=== PATIENT | female | born 1960 | race Hispanic/Latino ===

== ENCOUNTER → 2017-12-18 | Outpatient (CLI) | payer BC ==
[~2017-12-18] MED LIST: ASA81 MG PO; AZITHROMYCIN250 MG PO; BACITRACIN 50,000 UNIT VIAL ONE; BIOTIN2500 MCG PO; BUPIVACAINE HCL 0.5% 10ML MPF VIAL INJ ONE; CEFTRIAXONE; CENTRUM COMPLE1 EACH PO; EVISTA60 MG PO; FOSAMAX70 MG PO; K-DUR20 ME1; LASIX20 MG PO; OYST-CAL-500500 MG PO; SIMVASTATIN10 MG PO; STEROID SHOT; TRIAMTERENE-HC1 EAC2 PO; TRIAMTERENE-HCTZ1 EA PO; VITAMIN D3400 UNIT PO; Z.0.LASIX20 MG; Z.0.PRILOSEC40 MG; Z.0.TRICOR145 MG PO; Z.0.ZOCOR40 MG PO; Z.2.METFORMIN HCL500; [UNRECOGNIZED DRUG - OTHER] PO
--- NOTE | 2017-12-22 18:12 | Diagnostic Imaging Report ---
#[id number] - MGSCRBIL #BILATERAL DIGITAL SCREENING MAMMOGRAM WITH CAD: 12/18/2017 CLINICAL: Routine screening. Comparison is made to exams dated: 06/29/2015 mammogram and 06/05/2015 mammogram - [facility]. Current study contains 4 films. The tissue of both breasts is heterogeneously dense. This may lower the sensitivity of mammography. Current study was also evaluated with a Computer Aided Detection (CAD) system. There are benign calcifications in both breasts. There also are benign nodules in both breasts that are stable. No significant masses, calcifications, or other findings are seen in either breast. There has been no significant interval change. IMPRESSION: BENIGN There is no mammographic evidence of malignancy. A 1 year screening mammogram is recommended. The patient will be notified by letter of the results. Hernando Fields Jr., D.O. cw/:12/22/2017 07:44:25 Care Tech: Mihaela RODGERS(Gee)(Desmond), [facility] letter sent: Compared to Prior B9 Mammogram BI-RADS: 2 Benign
== END | disposition home or self-care (01) ==
LOC: MAMMO 14:11
PROVIDERS: ATTEND Internal Medicine
DX: Z12.31 Encounter for screening mammogram for malignant neoplasm of breast (principal)
CPT/HCPCS: 77067

== ENCOUNTER → 2017-12-19 | Day surgery (SDC) | payer BC ==
[~2017-12-19] MED LIST changes: -BACITRACIN 50,000 UNIT VIAL ONE; -BUPIVACAINE HCL 0.5% 10ML MPF VIAL INJ ONE; +CEFAZOLIN SOD 1 GM VIAL ONE; +DEXAMETHASONE SOD PHOS INJ 4 MG/ML VIAL ONE; +FAMOTIDINE 20 MG/2 ML VIAL IV ONE; +FENTANYL CITRATE/PF 100MCG/2 ML INJ ONE; +KETOROLAC TROMETHAMINE 30 MG/ML VIAL ONE; +LIDOCAINE HCL 2% LOCAL INJ 5 ML SDV VIAL INJ ONE; +METOCLOPRAMIDE HCL 10 MG/2ML VIAL ONE; +MORPHINE SULFATE INJ 10 MG/ML ONE; +ONDANSETRON HCL INJ 2 MG/ML VIAL ONE; +PROPOFOL IV EMULSION 10 MG/ML 20 ML VIAL ONE; +SCOPOLAMINE 1.5 MG PATCH ONE; +SEVOFLURANE INHAL SOLN 250 ML PEN BTL ONE
[2017-12-19 08:43] LABS: BASOPHILS # (AUTO) 0.1 (0.0-0.1); BASOPHILS % 0.9 % (0.0-1.0); EOSINOPHILS # (AUTO) 0.2 (0.0-0.4); EOSINOPHILS % 3.4 % (0.0-6.0); HEMATOCRIT 40.6 % (34.2-44.1); HEMOGLOBIN 14.1 g/dL (12.0-16.0); LYMPHOCYTES # (AUTO) 2.6 (1.0-3.2); LYMPHOCYTES % 45.2 % (18.0-39.1); MEAN CORPUSCULAR HEMOGLOBIN 31.2 pg (28-32); MEAN CORPUSCULAR HGB CONC 34.7 g/dL (31-35); MEAN CORPUSCULAR VOLUME 89.8 fL (81-99); MONOCYTES # (AUTO) 0.4 (0.2-0.8); MONOCYTES % 7.4 % (4.4-11.3); NEUTROPHILS # (AUTO) 2.4 (2.1-6.9); NEUTROPHILS % 42.9 % (38.7-80.0); PLATELET COUNT 219 x10e3/uL (140-360); RED BLOOD COUNT 4.52 x10e6/uL (3.6-5.1)
[2017-12-19 08:59] LABS: ANION GAP 14.6 mmol/L (8-16); BLOOD UREA NITROGEN 18 mg/dL (7-26); BUN/CREATININE RATIO 22 (6-25); CALCIUM 9.8 mg/dL (8.4-10.2); CARBON DIOXIDE 25 mmol/L (22-29); CHLORIDE 105 mmol/L (98-107); CREATININE, SERUM 0.83 mg/dL (0.57-1.11); EST GLOMERULAR FILTRATION RATE > 60 ML/MIN (60-); GLUCOSE 119 mg/dL (74-118); POTASSIUM 3.6 mmol/L (3.5-5.1); SODIUM 141 mmol/L (136-145)
--- NOTE | 2017-12-20 08:28 | Operative Report ---
DATE OF PROCEDURE: December 19, 2017 PREOPERATIVE DIAGNOSIS: Recurrent ganglion cyst, left wrist. POSTOPERATIVE DIAGNOSIS: Recurrent ganglion cyst, left wrist. PROCEDURE: Excision of recurrent ganglion cyst, left wrist. ANESTHESIA: General. HISTORY: The patient is a 57-year-old female who several years ago underwent resection of a left wrist volar ganglion cyst. She has noted a symptomatic recurrence. Risk, benefits and alternatives of treatment were discussed with the patient. She is prepared to undergo the procedures outlined. DETAILS OF PROCEDURE: Patient was marked preoperatively in the holding area. She was brought to the operating theater, and after the induction of adequate general anesthesia, she was prepped and draped in a supine position. A time out was performed. The left upper extremity is marked, and then exsanguinated and a tourniquet inflated to a pressure of 250 mmHg. An incision was made through the skin and subcutaneous tissues. Small venous tributaries were controlled with bipolar cautery. The FCR tendon was identified on the ulnar side of the wound and the radial artery was identified. It was a large area of scar tissue with a recurrent cyst noted in the interval between the 2 structures. The arteries carefully dissected off of the scarred area. The cyst was identified and traced down to the scaphotrapezial joint where the cyst and its communicating stalk were then removed. The rent in the joint capsule was fulgurated with the bipolar cautery, and then irrigated with bacteriostatic saline and closed with a 5-0 nylon in an interrupted horizontal mattress fashion. A Marcaine field block was performed at the operative site. Tourniquet was deflated. All the fingers pinked up nicely. A sterile bulking conforming bandage was applied. Patient tolerated the procedure well, and was brought to the recovery room in satisfactory condition, and discharged with a postoperative instruction sheet, as well as a followup appointment. Job#: [id number] HERNAN
--- NOTE | 2017-12-20 08:40 | Operative Report ---
DATE OF PROCEDURE: December 19, 2017 PREOPERATIVE DIAGNOSIS: Bilateral involutional ptosis of breasts. POSTOPERATIVE DIAGNOSIS: Bilateral involutional ptosis of breasts. PROCEDURES 1. Bilateral augmentation mammoplasty. 2. Mastopexy. ANESTHESIA: General. HISTORY: Patient is a 57-year-old female who complains of involution of breasts along with some ptosis, and wishes to have correction of this. The risks, benefits and alternatives of treatment were discussed with the patient. She is prepared to undergo the procedures outlined. She has signed the [place] [employer] consent forms for said procedures. PROCEDURE: Patient was marked preoperatively in the holding area. She was brought to the operating theater, and after the induction of adequate general anesthesia, she was prepped and draped in a supine position. A time out was performed. The procedure was begun by marking out inframammary incisions below both breasts of approximately 6.5 cm in length. The incisions were then made through the skin and subcutaneous tissues. Venous tributaries are controlled with the cautery. Using the cautery, the dissection was deepened through the subcutaneous and breast tissue until the prepectoral fascia was identified. At this point, the lower hemispheric portion of each breast was then undermined up to the level of the nipple areolar complex in a dual-plane technique. After the completion of the subglandular dissection, the pectoralis major muscle is identified at its insertion down at the inframammary fold. Leaving a cuff of tissue 2-3 cm to maintain the inframammary fold, the muscle was transected over a rib using the electrocautery. The muscle was transected from medial to lateral. Then the subpectoral space was then entered. Using the markings, the subpectoral space was enlarged to the size needed to accommodate the implant. At this point, hemostasis is checked, and the wounds made hemostatic. A 450 mL smooth round gel filled sizers were then placed within each breast pocket. It was noted that several adjustments to each pocket is necessary to achieve a nice contour over the sizer. The sizers were then removed and the pockets were then enlarged and revised as needed by transecting some more pectoralis major muscle medially, and then extending the pockets laterally to achieve a nice curvature. At this point, the pockets are checked for hemostasis once again, and the sizers are replaced. There is noted to be a good contour over the sizer with no tension of the pocket over the implant sizer. At this point, the sizers were then removed. The pockets are both irrigated with antibiotic containing solution and hemostasis is checked once again and made absolute. The pockets were then irrigated with Betadine solution and two 450 mL smooth round gel filled implants were prepared by metal template maker specification. The lot number and serial number are located within the patient's chart. The implants were placed within the patient's pockets, and then the patient was sat up and assessed. It was noted that the left nipple needs to have 2 cm of correction. The right nipple areola complex needs to have 1 cm of correction. The patient was made supine. The inframammary wounds were closed in layers as follows: 3-0 Monocryl was used in an interrupted simple fashion to approximate the subcutaneous and breast tissue, 4-0 Monocryl was used in an interrupted buried fashion to approximate the deep dermis and finally a 5-0 Monocryl running subcuticular stitch was used. At this point, the mastopexy markings that were made with the patient in the upright position are incised through the skin and subcutaneous tissue sharply for the upper hemispheric portion of each nipple areolar complex. The skin paddles were then removed. The wounds were made hemostatic using electrocautery. The wounds were then closed with 3-0 Monocryl in an interrupted buried fashion to approximate the deep dermis and a 5-0 running subcuticular stitch was used to close the epidermis. Steri-Strips were applied to all the incisions. The estimated blood loss for this portion of the procedure was approximately 50-75 mL. She tolerated the procedure well. Sterile bulking forming bandages were applied. Patient was placed in a gently compressing postoperative bra, and then brought to the recovery room in satisfactory condition. She was discharged with a postoperative instruction sheet, as well as a followup appointment. Job#: [id number] HERNAN
== END | disposition home or self-care (01) ==
LOC: OR 08:01
PROVIDERS: ATTEND Plastic Surgery
DX: N64.81 Ptosis of breast (principal); M67.432 Ganglion, left wrist; I10 Essential (primary) hypertension; K21.9 Gastro-esophageal reflux disease without esophagitis; E78.5 Hyperlipidemia, unspecified; N20.0 Calculus of kidney; Z01.810 Encounter for preprocedural cardiovascular examination; Z79.82 Long term (current) use of aspirin
CPT/HCPCS: 19316; 19325; 25112; L8600; 36415; 80048; 85025; 88304; 93005; J0690; J1100; J1885; J2001; J2270; J2405; J2765

== ENCOUNTER → 2018-02-23 | Outpatient (CLI) | payer BC ==
[~2018-02-23] MED LIST changes: -CEFAZOLIN SOD 1 GM VIAL ONE; -DEXAMETHASONE SOD PHOS INJ 4 MG/ML VIAL ONE; -FAMOTIDINE 20 MG/2 ML VIAL IV ONE; -FENTANYL CITRATE/PF 100MCG/2 ML INJ ONE; -KETOROLAC TROMETHAMINE 30 MG/ML VIAL ONE; -LIDOCAINE HCL 2% LOCAL INJ 5 ML SDV VIAL INJ ONE; -METOCLOPRAMIDE HCL 10 MG/2ML VIAL ONE; -MORPHINE SULFATE INJ 10 MG/ML ONE; -ONDANSETRON HCL INJ 2 MG/ML VIAL ONE; -PROPOFOL IV EMULSION 10 MG/ML 20 ML VIAL ONE; -SCOPOLAMINE 1.5 MG PATCH ONE; -SEVOFLURANE INHAL SOLN 250 ML PEN BTL ONE
[2018-02-23 09:02] LABS: BILIRUBIN,URINE NEGATIVE (NEGATIVE); CLARITY,URINE SL CLOUDY (CLEAR); COLOR,URINE YELLOW (YELLOW); KETONES,URINE NEGATIVE (NEGATIVE); LEUKOCYTE ESTERASE ,URINE NEGATIVE (NEGATIVE); NITRITE,URINE NEGATIVE (NEGATIVE); PROTEIN,URINE DIPSTICK NEGATIVE (NEGATIVE); URINE UROBILINOGEN 0.2 mg/dL (0.2 - 1)
[2018-02-23 09:15] LABS: BACTERIA,URINE FEW /HPF; EPITHELIAL CELLS,URINE FEW /LPF; RBC,URINE 21-50 /HPF (0-5)
== END ==
LOC: LAB 08:16
PROVIDERS: ATTEND Urology
DX: N39.0 Urinary tract infection, site not specified (principal)
CPT/HCPCS: 81001; 87086

== ENCOUNTER → 2018-04-04 | Day surgery (SDC) | payer BC ==
[~2018-04-04] MED LIST changes: +BELLADONNA/OPIUM 30 MG SUPP RC ONE; +CEFTRIAXONE SOD 1 GM VIAL ONE; +CITRIC ACID/SODIUM CITRATE 30 ML UDC ONE; +DEXAMETHASONE SOD PHOS INJ 4 MG/ML VIAL ONE; +FAMOTIDINE 20 MG/2 ML VIAL IV ONE; +IOPAMIDOL 610MG/1ML 300 MG/ML VIAL IV ONE; +KETOROLAC TROMETHAMINE 30 MG/ML VIAL ONE; +LIDOCAINE HCL 2% LOCAL INJ 5 ML SDV VIAL INJ ONE; +METOCLOPRAMIDE HCL 10 MG/2ML VIAL ONE; +ONDANSETRON HCL INJ 2 MG/ML VIAL ONE; +PROPOFOL IV EMULSION 10 MG/ML 20 ML VIAL ONE; +SCOPOLAMINE 1.5 MG PATCH ONE; +SEVOFLURANE INHAL SOLN 250 ML PEN BTL ONE
[2018-04-04 10:52] LABS: BASOPHILS # (AUTO) 0.1 (0.0-0.1); BASOPHILS % 0.9 % (0.0-1.0); EOSINOPHILS # (AUTO) 0.2 (0.0-0.4); EOSINOPHILS % 3.3 % (0.0-6.0); HEMATOCRIT 39.8 % (34.2-44.1); HEMOGLOBIN 13.7 g/dL (12.0-16.0); LYMPHOCYTES # (AUTO) 2.3 (1.0-3.2); LYMPHOCYTES % 42.2 % (18.0-39.1); MEAN CORPUSCULAR HEMOGLOBIN 30.6 pg (28-32); MEAN CORPUSCULAR HGB CONC 34.4 g/dL (31-35); MONOCYTES # (AUTO) 0.4 (0.2-0.8); MONOCYTES % 6.7 % (4.4-11.3); NEUTROPHILS # (AUTO) 2.5 (2.1-6.9); NEUTROPHILS % 46.5 % (38.7-80.0); PLATELET COUNT 215 x10e3/uL (140-360); RED BLOOD COUNT 4.47 x10e6/uL (3.6-5.1); RED CELL DISTRIBUTION WIDTH 12.3 % (11.7-14.4)
[2018-04-04 11:14] LABS: ALANINE AMINOTRANSFERASE 29 IU/L (0-55); ALBUMIN 3.9 g/dL (3.5-5.0); ALBUMIN/GLOBULIN RATIO 1.1 (0.8-2.0); ALKALINE PHOSPHATASE 57 IU/L (40-150); ANION GAP 12.9 mmol/L (8-16); BLOOD UREA NITROGEN 12 mg/dL (7-26); BUN/CREATININE RATIO 18 (6-25); CALCIUM 9.6 mg/dL (8.4-10.2); CARBON DIOXIDE 24 mmol/L (22-29); CHLORIDE 107 mmol/L (98-107); CHOL/HDL RATIO 6.9 (3.0-3.6); CHOLESTEROL 242 MD/DL (0-199); CREATININE, SERUM 0.68 mg/dL (0.57-1.11); EST GLOMERULAR FILTRATION RATE > 60 ML/MIN (60-); GLUCOSE 99 mg/dL (74-118); HDL CHOLESTEROL 35 MG/DL (40-60); LDL CHOLESTEROL 155 MG/DL (60-130); POTASSIUM 3.9 mmol/L (3.5-5.1); SODIUM 140 mmol/L (136-145); TRIGLYCERIDES 259 MG/DL (0-149)
--- NOTE | 2018-04-04 11:21 | Diagnostic Imaging Report ---
PROCEDURE:X-RAY ABDOMEN - KUB COMPARISON:None. INDICATIONS:PRE OPERATIVE CHEST X-RAY FOR HEMATURIA FINDINGS: There is a non-obstructed bowel-gas pattern. Surgical clips overlie the right mid abdomen, right pelvis, and left hip. There are no calcifications projected over the renal shadows, expected course of the ureters or bladder. There are no acute osseous abnormalities. CONCLUSION: No radiographically apparent urolithiasis. Nonobstructive bowel gas pattern. Dictated by: Cain Chun M.D. on 04/04/2018 at 11:25 Electronically approved by: Cain Chun M.D. on 04/04/2018 at 11:25
--- NOTE | 2018-05-18 16:09 | Operative Report ---
DATE OF PROCEDURE: April 04, 2018 PREOPERATIVE DIAGNOSES 1. Microhematuria. 2. Urinary tract infections. POSTOPERATIVE DIAGNOSES 1. Microhematuria. 2. Urinary tract infections. 3. Minimal cephalad cystocele. 4. Mild rectocele. 5. Atrophic (senile) vaginitis. PROCEDURES PERFORMED 1. Cystourethroscopy with bilateral ureteral catheterization and retrograde ureteropyelography. 2. Interpretation retrograde ureteropyelography. 3. Supervision of fluoroscopy, no radiologist present. 4. Pelvic examination under anesthesia. ANESTHESIA: General. COMPLICATIONS: None. CLINICAL SUMMARY: Negrita Alexander is a 57-year-old woman with a history of urolithiasis. The patient is status post a cystocele repair with graft and pubovaginal sling. She has had microhematuria and recurrent infections and is brought for evaluation. She is aware of the risks of bleeding, infection, injury to adjacent structures, need for additional procedures and she elected to proceed. OPERATIVE PROCEDURE IN DETAIL: Informed consent was verified. Negrita Alexander was properly identified, taken to the operative room, placed on the cystoscopy table in supine position. Anesthesia was uneventfully begun. The patient was then carefully, gently repositioned in the dorsal lithotomy position with all pressure points well padded. Her genitalia were prepared and draped in usual sterile fashion. A 22.5-Japanese cystoscope sheath with obturator in place was atraumatically inserted in the patient's urethra and bladder was drained. Panendoscopy of the urinary bladder revealed no suspicious lesions, no tumors, no stones, no diverticula. Normally positioned configured ureteral orifices were identified. An 8-Japanese catheter was used to cannulate each ureter and retrograde ureteropyelography was performed. Interpretation retrograde ureteropyelography: Contrast was instilled in retrograde fashion bilaterally. There were no tumors, no stones and no diverticula. Unobstructed drainage was observed bilaterally fluoroscopically. The patient's bladder was then drained. Cystoscope was withdrawn. Pelvic examination under anesthesia revealed a minimal cystocele only in the cephalad most portion of the anterior vaginal wall. There is a mild rectocele that was atrophic (senile) vaginitis. There is no evidence of erosion of the previous biological sling and there were no palpable pelvic masses. The patient was then uneventfully reversed from anesthesia and taken to recovery room in stable condition. There were no complications to the procedure and she tolerated the procedure well. Explicit postop instructions were given. Will follow the patient up in the office. Job#: [id number] FAVIO
== END | disposition home or self-care (01) ==
LOC: OR 10:08
PROVIDERS: ATTEND Urology
DX: N39.0 Urinary tract infection, site not specified (principal); N81.10 Cystocele, unspecified; N81.6 Rectocele; N95.2 Postmenopausal atrophic vaginitis; Z87.442 Personal history of urinary calculi; I10 Essential (primary) hypertension; Z88.6 Allergy status to analgesic agent; Z79.82 Long term (current) use of aspirin
CPT/HCPCS: 36415; 52005; 74420; 80053; 80061; 83970; 84550; 85025; C1758; J0696; J1100; J1885; J2001; J2405; J2765; Q9967; 74018

== ENCOUNTER → 2020-01-09 | Outpatient (CLI) | payer OTHER ==
[~2020-01-09] MED LIST changes: -BELLADONNA/OPIUM 30 MG SUPP RC ONE; -CEFTRIAXONE SOD 1 GM VIAL ONE; -CITRIC ACID/SODIUM CITRATE 30 ML UDC ONE; -DEXAMETHASONE SOD PHOS INJ 4 MG/ML VIAL ONE; -FAMOTIDINE 20 MG/2 ML VIAL IV ONE; -IOPAMIDOL 610MG/1ML 300 MG/ML VIAL IV ONE; -KETOROLAC TROMETHAMINE 30 MG/ML VIAL ONE; -LIDOCAINE HCL 2% LOCAL INJ 5 ML SDV VIAL INJ ONE; -METOCLOPRAMIDE HCL 10 MG/2ML VIAL ONE; -ONDANSETRON HCL INJ 2 MG/ML VIAL ONE; -PROPOFOL IV EMULSION 10 MG/ML 20 ML VIAL ONE; -SCOPOLAMINE 1.5 MG PATCH ONE; -SEVOFLURANE INHAL SOLN 250 ML PEN BTL ONE
--- NOTE | 2020-01-09 17:15 | Diagnostic Imaging Report ---
Hepatobiliary Scan with Gallbladder Ejection Fraction Clinical information: Upper abdominal pain Report: Following intravenous administration of 6.4 millicuries of Tc-99m mebrofenin, dynamic images of the abdomen in the anterior projection were obtained through 41 minutes. Sincalide (CCK analog) 1.5 micrograms was administered intravenously over 30 minutes with additional imaging for determination of gallbladder ejection fraction. Perfusion to the liver is normal. Extraction of tracer from the blood pool by the liver parenchyma is normal. Tracer is seen promptly within the biliary tract. The gallbladder begins to fill by 28 minutes post-injection of tracer and fills adequately. Tracer is seen in the small bowel by 10 minutes. The gallbladder ejection fraction with administration of sincalide is 83% (normal greater than 40%). Impression: 1. Filling of the gallbladder excludes the diagnosis of acute cystic duct obstruction/acute cholecystitis. 2. Normal gallbladder ejection fraction of 83% does not support the clinical diagnosis of chronic cholecystitis/gallbladder dyskinesia. Signed by: Dr. Mihaela Rebollar M.D. on 01/09/2020 5:11 PM
== END ==
LOC: NM 11:43
PROVIDERS: ATTEND Internal Medicine Gastroenterology
DX: R10.10 Upper abdominal pain, unspecified (principal); R93.5 Abnormal findings on diagnostic imaging of other abdominal regions, including retroperitoneum
CPT/HCPCS: 78227; A9537

== ENCOUNTER → 2020-08-31 | Day surgery (SDC) | payer OTHER ==
[~2020-08-31] MED LIST changes: +CITRIC ACID/SODIUM CITRATE 30 ML UDC PO ONE; +COD LIVER OIL1 EAC2 PO; +DIINDOLYLMETHANE1 GM PO; +HYDROCHLOROTHIA25 MG PO; +HYOSCYAMINE 0.125 MG TAB ONE; +METFORMIN HCL500 MG PO; +METOCLOPRAMIDE HCL 10 MG/2ML VIAL ONE; +ONDANSETRON HCL INJ 2MG/ML 2ML 2 MG/ML VIAL ONE; +PRAVACHOL40 MG PO; +PROGESTERONE100 MG PO; +PROPOFOL IV EMULSION 0 ML IV ONE; +PROPOFOL IV EMULSION 10 MG/ML 20 ML VIAL ONE; +SIMETHICONE 40 MG/0.6 ML BTL ONE; +VIT D3 PO; +VIT K2 PO
[2020-08-31 17:15] VITALS: BP 126/86
== END | disposition home or self-care (01) ==
LOC: OR 13:47
PROVIDERS: ATTEND Internal Medicine Gastroenterology
DX: K63.5 Polyp of colon (principal); K57.30 Diverticulosis of large intestine without perforation or abscess without bleeding; K64.8 Other hemorrhoids; K20.90 Esophagitis, unspecified without bleeding; K29.70 Gastritis, unspecified, without bleeding; D12.2 Benign neoplasm of ascending colon; K21.9 Gastro-esophageal reflux disease without esophagitis; Z86.010 Personal history of colon polyps; E11.9 Type 2 diabetes mellitus without complications; I10 Essential (primary) hypertension; E78.00 Pure hypercholesterolemia, unspecified; Z01.810 Encounter for preprocedural cardiovascular examination; Z01.812 Encounter for preprocedural laboratory examination; Z20.828 Contact with and (suspected) exposure to other viral communicable diseases; Z88.8 Allergy status to other drugs, medicaments and biological substances; E78.5 Hyperlipidemia, unspecified; Z87.442 Personal history of urinary calculi
CPT/HCPCS: 36415; 43239; 45380; 82948; 93005; J2405; J2704; J2765; U0002

== ENCOUNTER → 2021-07-16 | Outpatient (CLI) | payer OTHER ==
[~2021-07-16] MED LIST changes: -CITRIC ACID/SODIUM CITRATE 30 ML UDC PO ONE; +DIOVAN80 MG PO; +GADOBENATE DIMEGLUMINE 1 ML IV ONE; +HYDROCODON-ACE1 EA11 PO; -HYOSCYAMINE 0.125 MG TAB ONE; -METOCLOPRAMIDE HCL 10 MG/2ML VIAL ONE; +NITROFURANTOIN100 MG PO; -ONDANSETRON HCL INJ 2MG/ML 2ML 2 MG/ML VIAL ONE; -PROPOFOL IV EMULSION 0 ML IV ONE; -PROPOFOL IV EMULSION 10 MG/ML 20 ML VIAL ONE; -SIMETHICONE 40 MG/0.6 ML BTL ONE; +VIT A PO
[2021-07-16 08:18] LABS: CREATININE, SERUM 0.86 mg/dL (0.57-1.11)
== END ==
LOC: NM 07:19
PROVIDERS: ATTEND Internal Medicine Hematology & Oncology
DX: C50.919 Malignant neoplasm of unspecified site of unspecified female breast (principal); R51.9 Headache, unspecified; M54.2 Cervicalgia; Z20.822 Contact with and (suspected) exposure to COVID-19
CPT/HCPCS: 36415; 70553; 71046; 72050; 78306; 82565; 84520; A9503; A9577; U0002

== ENCOUNTER → 2021-07-20 | Day surgery (SDC) | payer OTHER ==
[~2021-07-20] MED LIST changes: +BUPIVACAINE HCL 0.5% INJ 30 ML VIAL INJ ONE; +DEXAMETHASONE SOD PHOS INJ 4 MG/ML SDV ONE; +FENTANYL CITRATE/PF 100MCG/2 ML INJ ONE; -GADOBENATE DIMEGLUMINE 1 ML IV ONE; +HYDROCODONE/APAP 5MG-325MG TAB ONE; +KETOROLAC TROMETHAMINE 30 MG/ML VIAL ONE; +LIDOCAINE 1% W/EPINEPHRINE 20 ML VIAL ONE; +LIDOCAINE HCL 2% LOCAL INJ 5 ML SDV VIAL INJ ONE; +METOCLOPRAMIDE HCL 10 MG/2ML VIAL ONE; +ONDANSETRON HCL INJ 2MG/ML 2ML 2 MG/ML VIAL ONE; +POVIDONE IODINE 0.05% 0.05 % ML PO ONE; +PROPOFOL IV EMULSION 10 MG/ML 20 ML VIAL ONE; +SEVOFLURANE INHAL SOLN 250 ML PEN BTL ONE; +SODIUM CHLORIDE 0.9% 50ML 100 ML ONE; +SUCCINYLCHOLINE CHLORIDE 20 MG/ML 10ML VIAL ONE
[2021-07-20 13:30] VITALS: BP 142/72
== END | disposition home or self-care (01) ==
LOC: OR 06:58
PROVIDERS: ATTEND Surgery
DX: C50.911 Malignant neoplasm of unspecified site of right female breast (principal); Z17.0 Estrogen receptor positive status [ER+]; K64.5 Perianal venous thrombosis; G47.33 Obstructive sleep apnea (adult) (pediatric); E11.9 Type 2 diabetes mellitus without complications; I10 Essential (primary) hypertension; E78.5 Hyperlipidemia, unspecified; E78.1 Pure hyperglyceridemia; Z88.6 Allergy status to analgesic agent; Z88.4 Allergy status to anesthetic agent; Z01.810 Encounter for preprocedural cardiovascular examination; Z79.84 Long term (current) use of oral hypoglycemic drugs; Z79.82 Long term (current) use of aspirin; Z68.31 Body mass index [BMI] 31.0-31.9, adult
CPT/HCPCS: 19301; 36415; 38525; 38900; 46320; 78195; 82948; 88305; 88309; 93005; A9541; J0690; J2405; J2765; J3010; 88304; J0330; J1100; J1885; J2001

== ENCOUNTER → 2021-08-10 | Day surgery (SDC) | payer OTHER ==
[2021-08-06 16:12] LABS: BASOPHILS # (AUTO) 0.1 (0.0-0.1); EOSINOPHILS # (AUTO) 0.2 (0.0-0.4); EOSINOPHILS % 3.5 % (0.0-6.0); HEMATOCRIT 37.6 % (34.2-44.1); HEMOGLOBIN 13.1 g/dL (12.0-16.0); LYMPHOCYTES # (AUTO) 2.7 (1.0-3.2); LYMPHOCYTES % 43.1 % (18.0-39.1); MEAN CORPUSCULAR HEMOGLOBIN 32.1 pg (28-32); MEAN CORPUSCULAR HGB CONC 34.8 g/dL (31-35); MEAN CORPUSCULAR VOLUME 92.2 fL (81-99); MONOCYTES # (AUTO) 0.5 (0.2-0.8); MONOCYTES % 7.8 % (4.4-11.3); NEUTROPHILS # (AUTO) 2.8 (2.1-6.9); NEUTROPHILS % 44.4 % (38.7-80.0); PLATELET COUNT 238 x10e3/uL (140-360); RED BLOOD COUNT 4.08 x10e6/uL (3.6-5.1); RED CELL DISTRIBUTION WIDTH 12.4 % (11.7-14.4)
[2021-08-06 16:33] LABS: ANION GAP 14.7 mmol/L (8-16); CALCIUM 9.4 mg/dL (8.4-10.2); CREATININE, SERUM 1.02 mg/dL (0.57-1.11); POTASSIUM 3.7 mmol/L (3.5-5.1)
[~2021-08-10] MED LIST changes: +ACETAMINOPHEN 1000 MG/100 ML 100 ML IV ONE; -BUPIVACAINE HCL 0.5% INJ 30 ML VIAL INJ ONE; +HEPARIN SOD (PORCINE) 1000 UNIT/ML SDV ONE; -HYDROCODONE/APAP 5MG-325MG TAB ONE; -LIDOCAINE 1% W/EPINEPHRINE 20 ML VIAL ONE; -METOCLOPRAMIDE HCL 10 MG/2ML VIAL ONE; +SODIUM CHLORIDE 0.9% 100 ML ONE; -SODIUM CHLORIDE 0.9% 50ML 100 ML ONE; -SUCCINYLCHOLINE CHLORIDE 20 MG/ML 10ML VIAL ONE; +ULTRACET TABLE1 EACH PO
[2021-08-10 13:05] VITALS: BP 135/79
== END | disposition home or self-care (01) ==
LOC: OR 10:13
PROVIDERS: ATTEND Surgery
DX: C50.911 Malignant neoplasm of unspecified site of right female breast (principal); G47.33 Obstructive sleep apnea (adult) (pediatric); I10 Essential (primary) hypertension; E78.5 Hyperlipidemia, unspecified; E78.1 Pure hyperglyceridemia; E11.9 Type 2 diabetes mellitus without complications; Z88.6 Allergy status to analgesic agent; Z88.3 Allergy status to other anti-infective agents; Z01.812 Encounter for preprocedural laboratory examination; Z20.822 Contact with and (suspected) exposure to COVID-19; Z68.32 Body mass index [BMI] 32.0-32.9, adult; Z87.442 Personal history of urinary calculi
CPT/HCPCS: 36415 ×2; 36561; 71045; 77001; 80048; 82948; 85025; C1751; J0131; J0690; J1100; J1644; J1885; J2001; J2405; J2704; J7050; U0002; J3010

== ENCOUNTER → 2023-03-24 | Day surgery (SDC) | payer OTHER ==
[~2023-03-24] MED LIST changes: -ACETAMINOPHEN 1000 MG/100 ML 100 ML IV ONE; +CRESTOR10 MG PO; -DEXAMETHASONE SOD PHOS INJ 4 MG/ML SDV ONE; +EXEMESTANE25 MG PO; -HEPARIN SOD (PORCINE) 1000 UNIT/ML SDV ONE; +HYOSCYAMINE SULFATE 0.5 MG/ML INJ ONE; -KETOROLAC TROMETHAMINE 30 MG/ML VIAL ONE; +LACTATED RINGER'S 1,000 ML ONE; +METOCLOPRAMIDE HCL 10 MG/2ML VIAL ONE; -ONDANSETRON HCL INJ 2MG/ML 2ML 2 MG/ML VIAL ONE; -POVIDONE IODINE 0.05% 0.05 % ML PO ONE; -SEVOFLURANE INHAL SOLN 250 ML PEN BTL ONE; -SODIUM CHLORIDE 0.9% 100 ML ONE; +VALSARTAN-HCTZ1 EACH PO; +VASCEPA1 GM PO
[2023-03-24 09:07] VITALS: BP 128/86; PULSE 84; RESP 17; O2SAT 96
[2023-03-29 07:19] LABS: ENDOMYSIAL ANTIBODIES, IGA Negative (Negative)
== END | disposition home or self-care (01) ==
LOC: OR 06:05
PROVIDERS: ATTEND Internal Medicine Gastroenterology
DX: K59.00 Constipation, unspecified (principal); D12.5 Benign neoplasm of sigmoid colon; K29.50 Unspecified chronic gastritis without bleeding; K52.9 Noninfective gastroenteritis and colitis, unspecified; K29.80 Duodenitis without bleeding; K20.90 Esophagitis, unspecified without bleeding; K62.89 Other specified diseases of anus and rectum; K21.9 Gastro-esophageal reflux disease without esophagitis; K57.30 Diverticulosis of large intestine without perforation or abscess without bleeding; G47.33 Obstructive sleep apnea (adult) (pediatric); I10 Essential (primary) hypertension; E78.5 Hyperlipidemia, unspecified; E11.9 Type 2 diabetes mellitus without complications; Z01.810 Encounter for preprocedural cardiovascular examination; Z79.84 Long term (current) use of oral hypoglycemic drugs; Z79.899 Other long term (current) drug therapy; Z85.3 Personal history of malignant neoplasm of breast
CPT/HCPCS: 36415; 43239; 45380; 45385; 82784; 82948; 83516; 83630; 83993; 86256; 87045; 87177; 87324; 87328; 87449; 93005; C9113; J1980; J2001; J2704; J2765; J3010; J7121; 45378